=== PATIENT | female | born 1975 | race Caucasian/White ===

== ENCOUNTER 2016-09-05 13:24 | Inpatient (IN) | payer OTHER ==
[~2016-09-05] VITALS: Ht 165.1 cm; Wt 106.2 kg
[~2016-09-05 13:24] MED LIST: GABA300C16 PO; HYD25 PO; METO-429 PO; OMEP20CA16 PO; ZOF8 PO
[2016-09-05] MEDS ORDERED: SODIUM CHLORIDE 0.9% 1L BAG IV* STA (13:48)
[2016-09-05] MEDS ORDERED: ACETAMINOPHEN 325 MG TAB PO STA (13:48)
[2016-09-05] MEDS ORDERED: CEFEPIME 2GM/50 ML (PMX) 50 ML IVPB STA (13:48)
[2016-09-05] MEDS ORDERED: LEVE-5 PO (13:52)
[2016-09-05] MEDS ORDERED: VANCOMYCIN 1 GM (PMX) 250 ML IVPB ONE (14:00)
[2016-09-05 14:27] LABS: ADD SCAN DIFF NO
[2016-09-05 14:31] LABS: ABNORMAL IP MESSAGE 1; HEMATOCRIT 31.4 % (37.0-47.0); HEMOGLOBIN 10.7 g/dl (12.0-16.0); MEAN CORPUSCULAR HEMOGLOBIN 33.2 pg (29.0-33.0); MEAN CORPUSCULAR HGB CONC 34.1 g/dl (32.0-37.0); MEAN CORPUSCULAR VOLUME 97.5 fl (82.0-101.0); MEAN PLATELET VOLUME 11.5 fl (7.4-10.4); PLATELET COUNT 81 10^3/UL (140-415); RED BLOOD COUNT 3.22 10^6/ul (4.20-5.40); RED CELL DISTRIBUTION WIDTH 16.7 % (11.5-14.5); WHITE BLOOD COUNT 6.4 10^3/ul (4.8-10.8)
[2016-09-05 14:44] LABS: INR 1.16; PROTIME 14.9 Sec (12.2-14.2); PT RATIO 1.2
--- NOTE | 2016-09-05 14:44 | RADRPT ---
PROCEDURE: Chest x-ray CLINICAL INDICATION: Pain. TECHNIQUE: One-view frontal. COMPARISON: 07/11/2015 FINDINGS: The cardiac silhouette is normal. No infiltrates are noted. No hilar abnormalities are identified. No pneumothorax or pleural effusions are visualized. Port-A-Cath overlies the right chest. The catheter is in the lower superior vena cava. IMPRESSION: 1. No active cardiopulmonary changes. 2. No interval change. RPTAT: HGSG .Bud Rinaldi MD, Date Time Electronically viewed and signed by .Bud Rinaldi MD, on 09/05/2016 14:44 .G/
[2016-09-05 14:45] LABS: ALBUMIN 3.5 g/dl (3.3-4.9); CHLORIDE 88 mmol/L (97-110)
[2016-09-05 14:46] LABS: POTASSIUM 3.2 mmol/L (3.5-5.1); SODIUM 133 mmol/L (135-144)
[2016-09-05 14:48] LABS: ALBUMIN/GLOBULIN RATIO 0.85; ANION GAP 16 (8-16); ASPARTATE AMINO TRANSFERASE 52 IU/L (15-46); BILIRUBIN,INDIRECT 0.9 mg/dl (0-1.1); BILIRUBIN,TOTAL 0.9 mg/dl (0.2-1.3); CARBON DIOXIDE 32 mmol/L (21-31); CREATININE 0.84 mg/dl (0.44-1.00); TOTAL PROTEIN 7.6 g/dl (6.1-8.1)
[2016-09-05 14:49] LABS: ALANINE AMINOTRANSFERASE 75 IU/L (13-69); ALKALINE PHOSPHATASE 92 IU/L (42-121); BLOOD UREA NITROGEN 18 mg/dl (7-20); CALCIUM 8.6 mg/dl (8.4-10.2); GLUCOSE 141 mg/dl (70-220)
[2016-09-05 15:20] LABS: TROPONIN-I < 0.012 ng/ml (0.00-0.12)
[2016-09-05] MEDS ORDERED: IOHEXOL 100 ML ONE (15:23)
[2016-09-05] MEDS ORDERED: IOHEXOL 350MG/ML 50 ML BTL ONE (15:23)
[2016-09-05] MEDS ORDERED: SOD CHLORIDE 0.9% 100 ML ONE (15:23)
[2016-09-05 15:30] LABS: EOSINOPHILS # 0.1 10^3/ul (0.0-0.5); LYMPHOCYTES # 0.5 10^3/ul (0.8-2.9); MONOCYTE # 0.5 10^3/ul (0.3-0.9); NEUTROPHIL # 5.3 10^3/ul (1.6-7.5); PLATELET ESTIMATE PLT APPEAR DECREASED; POLYCHROMASIA 1+
[2016-09-05] MEDS ORDERED: ONDANSETRON 4 MG INJ IV PRN ×2 (15:30→19:30)
[2016-09-05] MEDS ORDERED: ACETAMINOPHEN 325 MG TAB PO PRN ×2 (15:30→19:30)
[2016-09-05] MEDS ORDERED: APIXABAN 5 MG TABLET PO ONE (16:30)
--- NOTE | 2016-09-05 16:43 | RADRPT ---
PROCEDURE: 1. CT chest, abdomen, and pelvis with contrast. 2. CT angiography of the chest was performed utilizing the pulmonary embolus protocol. CLINICAL INDICATION: Malaise and decreased appetite. Breast cancer and sepsis. TECHNIQUE: CT scan of the chest, abdomen, and pelvis was performed after the uneventful intravenous administrat ion of 120 cc of Omnipaque-350. CT angiography of the chest was performed utilizing the pulmonary em bolus protocol. Coronal and sagittal reformatted images were obtained from the axial source images. 3-D/multiplanar reformations were performed for the chest. Images were reviewed on a [employer] PACS workstation. The total exam CTDI equals 28.17, 20.11, 16.96 mGy and the total exam DLP equals 19.13.13 mGy-cm. One or more of the following dose reduction techniques were used: - Automated exposure control. - Adjustment of the mA and/or kV according to patient size. - Use of iterative reconstruction technique. COMPARISON: None available. FINDINGS: Pulmonary angiography, lungs, pleura, airways, and thoracic inlet: There are pulmonary emboli within the segmental and subsegmental branches of the right lower lobe an d within the subsegmental branches of the left lower lobe. The main pulmonary artery is normal in c aliber and there is no evidence of right heart strain. There are nodules scattered throughout both l ungs, the largest of which is in the right middle lobe and measures 12 mm. There is patchy peribronc hovascular ground-glass opacity within the upper lobes. There is no effusion or pneumothorax. Cardiovascular system the mediastinum: The heart is normal in size without pericardial thickening or effusion. The aorta is nonaneurysmal. There is postoperative change within the right breast. There is a left-sided Port-A-Cath in place with its tip at the superior cavoatrial junction. There is paratracheal bilateral hilar, and subcar inal adenopathy with a dominant subcarinal lymph node measuring 2.1 cm in short axis. Hepatobiliary system and spleen: There is diffuse fatty infiltration of the liver, which is enlarged measuring 20.3 cm in length. No focal hepatic lesion is identified. There is no intra or extrahepatic biliary ductal dilatation. Th e gallbladder is unremarkable. There are sub-centimeter cyst at the anterior superior margin of the spleen. The spleen is otherwise unremarkable. The pancreas is unremarkable. Genitourinary system and adrenal glands: There are no renal masses or hydronephrosis. The urinary bladder is unremarkable. The uterus and ad nexa are unremarkable. The adrenal glands are unremarkable. Gastrointestinal system: The stomach is partially decompressed, but otherwise unremarkable. The duodenum and small bowel are unremarkable. There is no bowel wall thickening or evidence of obstruction. The appendix is in the right lower quadrant and is unremarkable. Peritoneum and lymphatics: There is no free intraperitoneal air or free fluid. There is no mesenteric or retroperitoneal adenop athy. Musculoskeletal system: There are no concerning osseous lesions. IMPRESSION: 1. Positive for PE with emboli in the segmental and subsegmental branches of the right lower lobe a nd subsegmental branches of the left lower lobe. No evidence of right heart strain. 2. Bilateral pulmonary nodules, the largest of which is in the right middle lobe and measures 12 mm , highly concerning for metastatic disease. 3. Mediastinal and hilar adenopathy, also concerning for metastatic disease. 4. Hepatomegaly and hepatic steatosis. 5. No evidence of metastatic disease within the abdomen or pelvis. CRITICAL RESULTS: These findings discussed with Dr. Khoury in the ED at 1609 hours on 09/05/2016. RPTAT: AA .Deniz Palma MD, Date Time Electronically viewed and signed by .Deniz Palma MD, MD on 09/05/2016 16:43 .P/
--- NOTE | 2016-09-05 17:12 | ERA ---
ER Documentation Chief Complaint Date/Time DATE: 09/05/16 TIME: 17:10 Chief Complaint malaise/decrease appetite/week x1week, last chemo 08/26/16 HPI Patient is a 41-year-old female with breast cancer, asthma, and hypertension who presents with fever. The patient was sent by Dr. Vu for admission and workup. The patient has body aches and decreased appetite. The patient has a cough as well. Dr. Fletcher feels the patient likely has pneumonia. The patient received chemo last Friday. She was seen at the [place] emergency department 2 days ago but was discharged at that time. Upon review of old medical records this is the patient's third visit to the ER at [facility]. ROS All systems reviewed and are negative except as per history of present illness. Medications Home Meds Reported Medications Levetiracetam* (Keppra*) 500 Mg Tablet, 500 MG PO BID, TAB 09/05/16 Omeprazole* (Omeprazole*) 20 Mg Capsule.dr, 20 MG PO DAILY, #30 CAP 07/11/15 Hydrochlorothiazide* (Hydrochlorothiazide*) 25 Mg Tab, 25 MG PO DAILY, #30 TAB 07/11/15 Metoprolol Tartrate* (Lopressor*) 50 Mg Tab, 50 MG PO BID, TAB 09/01/14 Discontinued Reported Medications Gabapentin* (Gabapentin*) 300 Mg Capsule, 300 MG PO QHS, #60 CAP 07/11/15 Discontinued Scripts Ondansetron Hcl* (Zofran* ODT) 8 mg -ODT Tab.disper, 8 MG PO Q6 Y for NAUSEA AND /OR VOMITING, #10 TAB Prov:SARIAH HARMON MD 07/11/15 Allergies Allergies: Coded Allergies: No Known Allergy (Unverified , 09/05/16) PMhx/Soc History of Surgery: Yes (tubal ligation, LUMPECTOMY; right breast; brain tumor) Anesthesia Reaction: No Hx Neurological Disorder: No Hx Respiratory Disorders: Yes (asthma) Hx Cardiac Disorders: Yes (htn) Hx Psychiatric Problems: No Hx Miscellaneous Medical Probl: Yes (BREAST CANCER) Hx Alcohol Use: No Hx Substance Use: No Hx Tobacco Use: No Smoking Status: Never smoker FmHx Family History: diabetes Physical Exam Vitals Vital Signs Date Time Temp Pulse Resp B/P Pulse Ox O2 Delivery O2 Flow Rate FiO2 09/05/16 16:53 Nasal Cannula 4 09/05/16 16:43 99.6 104 20 87/45 99 Nasal Cannula 4.0 09/05/16 13:28 103.1 114 20 104/70 94 Physical Exam Const: Moderate distress Head: Atraumatic Eyes: Normal Conjunctiva ENT: Normal External Ears, Nose and Mouth. Neck: Full range of motion..~ No meningismus. Resp: Decreased breath sounds bilateral Cardio: Tachycardic rate without murmur Abd: Soft, non tender, non distended. Normal bowel sounds Skin: Pale skin Back: No midline or flank tenderness Ext: No cyanosis, or edema Neur: Awake and alert Psych: Normal Mood and Affect Result Diagram: 09/05/16 1400 09/05/16 1400 Results 24 hrs Laboratory Tests Test 09/05/16 14:00 White Blood Count 6.410^3/ul Red Blood Count 3.2210^6/ul Hemoglobin 10.7g/dl Hematocrit 31.4% Mean Corpuscular Volume 97.5fl Mean Corpuscular Hemoglobin 33.2pg Mean Corpuscular Hemoglobin Concent 34.1g/dl Red Cell Distribution Width 16.7% Platelet Count 8110^3/UL Mean Platelet Volume 11.5fl Neutrophils % 83.0% Lymphocytes % 8.0% Monocytes % 8.0% Eosinophils % 1.0% Neutrophils # 5.310^3/ul Lymphocytes # 0.510^3/ul Monocytes # 0.510^3/ul Eosinophils # 0.110^3/ul Platelet Estimate PLT APPEAR DECREASED Polychromasia 1+ Prothrombin Time 14.9Sec Prothrombin Time Ratio 1.2 INR International Normalized Ratio 1.16 Activated Partial Thromboplast Time 27.0Sec Sodium Level 133mmol/L Potassium Level 3.2mmol/L Chloride Level 88mmol/L Carbon Dioxide Level 32mmol/L Anion Gap 16 Blood Urea Nitrogen 18mg/dl Creatinine 0.84mg/dl Glucose Level 141mg/dl Lactic Acid Level 2.2mmol/L Calcium Level 8.6mg/dl Total Bilirubin 0.9mg/dl Direct Bilirubin 0.00mg/dl Indirect Bilirubin 0.9mg/dl Aspartate Amino Transf (AST/SGOT) 52IU/L Alanine Aminotransferase (ALT/SGPT) 75IU/L Alkaline Phosphatase 92IU/L Troponin I < 0.012ng/ml Total Protein 7.6g/dl Albumin 3.5g/dl Globulin 4.10g/dl Albumin/Globulin Ratio 0.85 Current Medications Medications (Trade) Dose Ordered Sig/Carmela Route PRN Reason Start Time Stop Time Status Last Admin Dose Admin Sodium Chloride (NS) 3,290 ml BOLUS OVER 2 HOURS STAT IV* 09/05/16 13:48 09/05/16 13:49 DC 09/05/16 14:15 Acetaminophen 650 mg 650 mg ONCE STAT PO 09/05/16 13:48 09/05/16 13:49 DC 09/05/16 14:13 Cefepime HCl 50 ml @ 100 mls/hr ONCE STAT IVPB 09/05/16 13:48 09/05/16 14:17 DC 09/05/16 14:13 Vancomycin HCl (Vancocin) 250 ml @ 125 mls/hr ONCE ONCE IVPB 09/05/16 14:00 09/05/16 15:59 DC 09/05/16 14:43 IV Flush 10 ml 10 ml STK-MED ONCE .ROUTE 09/05/16 15:23 09/05/16 15:24 DC 09/05/16 15:51 Sodium Chloride 100 ml @ ud STK-MED ONCE .ROUTE 09/05/16 15:23 09/05/16 15:24 DC 09/05/16 15:52 Iohexol (Omnipaque) 100 ml @ ud STK-MED ONCE .ROUTE 09/05/16 15:23 09/05/16 15:24 DC 09/05/16 15:52 Iohexol (Omnipaque 350mg/ ml) 50 ml STK-MED ONCE .ROUTE 09/05/16 15:23 09/05/16 15:24 DC 09/05/16 15:53 Ondansetron HCl (Zofran Inj) 4 mg BRIDGE ORDER PRN IV NAUSEA AND/OR VOMITING 09/05/16 15:30 09/06/16 15:29 Acetaminophen (Tylenol Tab) 650 mg ER BRIDGE PRN PO MILD PAIN/FEVER 09/05/16 15:30 09/06/16 15:29 Apixaban (Eliquis) 10 mg ONCE ONCE PO 09/05/16 16:30 09/05/16 16:32 DC Procedures/MDM EKG read by me: Rate/Rhythm: Sinus tachycardia Intervals: Normal Impression: Sinus tachycardia without ischemia CT of the chest shows pulmonary embolism per radiology. Chest x-ray shows no obvious pneumonia or pneumothorax per radiology. Admit MDM: Patient's infectious symptoms have not stabilized and the patient is at risk of rapid decompensation. The patient will be admitted for careful hydration, antibiotic therapy, and infectious source control. Severe Sepsis criteria: Infectious source: Pneumonia End organ damage indicated by: Lactate greater than 2 Sepsis Management: Time of recognition of sepsis: Upon arrival Within 3 hours of recognition: Blood cultures x 2 before broad-spectrum antibiotics: Yes 30 ml/kg NS bolus Completed Initial lactate 2.2 Repeat lactate pending Time of recognition of septic shock: No septic shock Septic Shock Assessment: Any lactic acid > 4.0 No Persistent hypotension (SBP < 90 or 40 mmHg drop, MAP < 65) despite 30 mL/kg IV fluid bolus No Volume Re-assessment for Septic Shock (post 30 ml/kg bolus): No septic shock at this time Persistent Hypotension Treatment: Comfort care No Central line Not Required Vasopressor started Not required I considered further perfusion assessment with CVP measurement, SCVO2, bedside ultrasound volume assessment, passive leg raise, trial of further fluid bolus. And proceeded with 30 ml/kg fluid bolus of NSS, broad spectrum antibiotics, and admission. The patient also has pulmonary embolism likely from her hypercoagulable state with breast cancer and was given Eliquis by mouth. She will need admission to a telemetry bed. Accepting Care Team Current data and ongoing care discussed. Admitting Physician: Dr. Matthews Car Lot Attendant(s): Dr. Vu Outstanding Data: Culture results and repeat lactic acid Critical Care: Critical care time 35 minutes excluding all billable procedures Emergent fluid management while maintaining close respiratory support. Provision of immediate and broad-spectrum antibiotic therapy. Simultaneous assessment for possible sources in order to direct targeted therapy. Consideration for invasive and chemical support to prevent cardiopulmonary collapse. Departure Diagnosis: Primary Impression: Pulmonary embolism Qualified Code: I26.90 - Acute septic pulmonary embolism without acute cor pulmonale Additional Impressions: Severe sepsis Pneumonia Qualified Code: J18.9 - Pneumonia due to infectious organism, unspecified laterality, unspecified part of lung Condition: Serious ROD CASTILLO MD September 05, 2016 17:12
[2016-09-05 17:31] VITALS: TEMP 100
[2016-09-05 17:31] LABS: ADD UMIC NO; URINE BILIRUBIN (Dip) NEGATIVE (NEGATIVE); URINE BLOOD (Dip) NEGATIVE (NEGATIVE); URINE COLOR LT. YELLOW (YELLOW); URINE GLUCOSE (Dip) NEGATIVE (NEGATIVE); URINE KETONES (Dip) NEGATIVE (NEGATIVE); URINE LEUKOCYTE ESTERASE (Dip) NEGATIVE (NEGATIVE); URINE NITRITE (Dip) NEGATIVE (NEGATIVE); URINE TOTAL PROTEIN (Dip) NEGATIVE (NEGATIVE); URINE UROBILINOGEN (Dip) 0.2 E.U./dL (0.1-1.0)
[2016-09-05 18:35] VITALS: BP 125/73; PULSE 107; RESP 18
[2016-09-05 18:38] VITALS: PULSE 107
[2016-09-05 18:42] VITALS: Ht 165.1 cm; Wt 106.2 kg
[2016-09-05] MEDS ORDERED: POTASSIUM CHLORIDE (SR) 20 MEQ TAB PO STA (19:06)
[2016-09-05] MEDS ORDERED: ZOLPIDEM 5 MG TAB PO PRN (19:30)
[2016-09-05] MEDS ORDERED: morphine 2 MG INJ IV PRN (19:30)
[2016-09-05] MEDS ORDERED: NACL 0.9% 3 ML SYG IV SCH (19:30)
[2016-09-05] MEDS ORDERED: DOCUSATE SODIUM 100 MG CAP PO PRN (19:30)
[2016-09-05] MEDS ORDERED: HYDROCODONE/APAP (5/325) TAB PO PRN (19:30)
[2016-09-05 20:09] VITALS: BP 117/70; RESP 20
[2016-09-05] MEDS: LEVETIRACETAM 500 MG TAB PO SCH (20:27)
[2016-09-05] MEDS: METOPROLOL 50 MG TAB PO SCH (20:28)
[2016-09-05 20:32] VITALS: PULSE 110
--- NOTE | 2016-09-05 20:39 | HP ---
DATE OF ADMISSION: 09/05/2016 CHIEF COMPLAINT: Weakness, shortness breath. HISTORY OF PRESENT ILLNESS: The patient is a 41-year-old female with history of metastatic breast c ancer with mets to the brain, status post recent brain met resection. The patient has been on chemo and radiation in the past. She has had a lumpectomy in the past and follows up with Dr. Vu for her chemotherapy. The patient has begun chemotherapy once again after having been off it for some t emeka. She comes in saying that she has decreased appetite, weakness, shortness of breath. She canno t hold down any food. In the ED, the patient had a CT of the abdomen and chest that showed PE as we ll as nodules in the lungs concerning for metastatic disease. Patient was started on Eliquis in the ED. She does state that she was able to tolerate some food, but in general has not been able to ea t a significant amount. She denies any significant nausea or vomiting. She has no other complaints . PAST MEDICAL HISTORY: As per HPI. HOME MEDICATIONS: 1. Hydrochlorothiazide. 2. Keppra. 3. Metoprolol. 4. Omeprazole. ALLERGIES: NO KNOWN DRUG ALLERGIES. FAMILY HISTORY: Denies. SOCIAL HISTORY: Denies any alcohol, tobacco or drugs. REVIEW OF SYSTEMS: A 12-point review of systems negative except for that as noted in the HPI. PHYSICAL EXAMINATION: VITAL SIGNS: T-max is 103.1, T-current is 99.3, pulse is 107, respiratory rate is 18, BP is 125/73, saturation 95% on 2 liters. GENERAL: Mild distress, alert and oriented. HEENT: Normocephalic, atraumatic. CHEST: Clear to auscultation. CARDIOVASCULAR: Regular rate and rhythm. ABDOMEN: Nondistended, nontender, soft. EXTREMITIES: No clubbing, cyanosis, or edema. LABORATORY DATA: White count 6.4, hemoglobin is 10.7, platelets are 81. Chemistry: Sodium is 133, K is 3.2, BUN is 18, creatinine is 0.84. AST ____, ALT is 75. INR is 1.16. UA is normal. DIAGNOSTICS: Chest CTA and CT abdomen show PE, bilateral pulmonary nodules concerning for metastati c disease, mediastinal and hilar adenopathy, hepatomegaly and hepatic steatosis, no evidence of meta static disease within the abdomen or pelvis. Chest x-ray shows no active changes, no interval han e. ASSESSMENT AND PLAN: 1. Generalized weakness with decreased appetite, likely secondary to recent initiation of chemother apy mixed possibly with a new pulmonary embolus. Will start the patient on clear liquid diet. Will give Zofran as needed. Will start the patient on Eliquis. Will get a consult with her oncologist, Dr. Vu. 2. Newly diagnosed pulmonary embolism. Start the patient on Eliquis. The patient will need at [facility] 3 months of Eliquis. Will consult her oncologist, Dr. Vu. 3. History of metastatic breast cancer with metastases to the brain, status post recent resection a s well as a history of lumpectomy and chemoradiation. Oncology consultation. 4. Hypokalemia. Replete. 5. Prophylaxis. Eliquis. Dictated By: HI COLBERT MD BS/NTS Conf#: [id number] DID#: [id number]
[2016-09-06] VITALS (10 sets, daily range): BP systolic 112–126; BP diastolic 67–76; PULSE 86–102; RESP 18–20
[2016-09-06] MEDS ORDERED: IBUPROFEN 600 MG TAB PO ONE (01:00)
[2016-09-06] MEDS ORDERED: PANTOPRAZOLE (EC) 40 MG TAB PO SCH (06:00)
[2016-09-06 07:51] LABS: ADD SCAN DIFF NO
[2016-09-06 07:59] LABS: ABNORMAL IP MESSAGE 1; BASOPHILS % 0.2 % (0.0-2.0); EOSINOPHILS % 0.2 % (0.0-7.0); HEMATOCRIT 26.1 % (37.0-47.0); HEMOGLOBIN 9.3 g/dl (12.0-16.0); LYMPHOCYTES # 0.6 10^3/ul (0.8-2.9); LYMPHOCYTES % 14.2 % (15.0-51.0); MEAN CORPUSCULAR HEMOGLOBIN 34.4 pg (29.0-33.0); MEAN CORPUSCULAR HGB CONC 35.6 g/dl (32.0-37.0); MEAN CORPUSCULAR VOLUME 96.7 fl (82.0-101.0); MONOCYTE # 0.6 10^3/ul (0.3-0.9); MONOCYTES % 13.5 % (0.0-11.0); PLATELET COUNT 77 10^3/UL (140-415); RED CELL DISTRIBUTION WIDTH 16.9 % (11.5-14.5); WHITE BLOOD COUNT 4.2 10^3/ul (4.8-10.8)
[2016-09-06 08:09] LABS: POTASSIUM 3.2 mmol/L (3.5-5.1)
[2016-09-06 08:12] LABS: CREATININE 0.59 mg/dl (0.44-1.00); PHOSPHORUS 3.5 mg/dl (2.5-4.9)
[2016-09-06 08:13] LABS: CALCIUM 8.1 mg/dl (8.4-10.2); MAGNESIUM 1.8 mg/dl (1.7-2.5)
[2016-09-06] MEDS: METOPROLOL 50 MG TAB PO SCH (08:37)
[2016-09-06] MEDS: LEVETIRACETAM 500 MG TAB PO SCH (08:37)
[2016-09-06] MEDS ORDERED: HYDROCHLOROTHIAZIDE 25 MG TAB PO SCH (09:00)
[2016-09-06] MEDS ORDERED: APIXABAN 5 MG TABLET PO SCH (09:00)
--- NOTE | 2016-09-06 14:27 | CONS ---
Date/Time of Note Date/Time of Note DATE: 09/06/16 TIME: 14:06 Assessment/Plan Assessment/Plan Chief Complaint/Hosp Course 40 yo female with metastatic triple negative breast cancer involving her bilateral lungs and mediastinal Lymph nodes who now presents with bilateral pulmonary emboli # Bilateral Pulmonary Emboli -continue Eliquis 10mg BID x 7 days then decrease to 5mg q BID -pt will need anticoagulation life long given her underlying metastatic cancer #Triple Negative Breast cancer -will consider continuing with Gemzar given that her progression was likely when she was off therapy -will check a CA 15-3 at this time. Her last CA 15-3 was 36 on 07/08 which was during the time she was off chemotherapy # Anemia -secondary to her underlying malignancy -cont po iron for now if patient can tolerate # Thrombocytopenia -secondary to Gemzar -no transfusion needed at this time. will continue to follow. -ok to continue anticoagulation as long as platelets are > 50K Approximately 40 min were spent at patient's bedside and in coordination of her care Problems: (1) Metastatic breast cancer Status: Chronic (2) Pulmonary embolism Status: Acute Qualifiers: Qualified Code: I26.90 - Acute septic pulmonary embolism without acute cor pulmonale Consultation Date/Type/Reason Admit Date/Time September 05, 2016 at 15:29 Date of Consultation: September 06, 2016 Type of Consultation: oncology Reason for Consultation metastatic breast cancer Referring Provider: HI COLBERT Hx of Present Illness Ms Horta is a 41-year-old female who I have been treating for triple negative metastatic breast cancer. Her initial diagnosis was in 2013 where she underwent neoadjuvant chemotherapy, followed by surgical resection and radiation. Her initial PET-CT did show evidence of hypermetabolic and large right paratracheal and left hilar node, as well as FDG uptake in the liver without a CT lesion. Therefore the patient underwent radiation to these other lymph nodes. The patient unfortunately recurred in June of 2015 and most recently has been receiving Gemzar chemotherapy, to which she was responding well systemically. Unfortunately, in June of 2016, she presented to [facility] for complaint of frontal headache with nausea and vomiting. She was subsequently diagnosed with brain mets. The patient underwent a craniotomy on 06/20/2016 with excision of the occipital tumor and pathology revealed a high -grade poorly differentiated metastatic carcinoma with clear cell features of the left occipital lesion, most consistent of breast origin. The patient then was seen by Dr. Toth postoperatively and she has since had stereotactic radiation to the tumor bed as well as the satellite lesions. The patient completed treatment on 08/07/2016. The patient completed her decadron taper. She restarted Gemcitabine on 08/26 but over the last week has become increasingly fatigued with shortness of breath. She was seen in our office yesterday and sent to the ER. A CT C/A/P was done which demonstrated bilateral pulmonary emboli in the segmental and subsegmental branches of the right lower lobe and subsegmental branches of the left lower lobe. Also seen are are bilateral pulmonary nodules, the largest of which is in the right middle lobe and measures 12 mm, highly concerning for metastatic disease. These pulmonary nodules were noted on PET CT from Apr 2016 but they measured 9mm in greatest dimension at that time. Of note pt was off chemotherapy from 06/13/16 to 08/26/16 while she was undergoing treatment to her brain mets. Pt has since been started on Eliquis 10mg po BID. August 21, 2016 Valeri Horta Page 2 of 2 The patient was seen by Dr. Spike Hendricks for possible enrollment in a clinical trial. Unfortunately, due to insurance reasons and the fact that her brain is not showing stability of the lesion, Dr. Hendricks cannot enroll her in the trial at this time. Therefore, we will be restarting Gemzar therapy at this time. The patient has an extremely good response systemically to Gemzar. We will have to watch her brain mets very closely in the interim. We will need to repeat her brain MRI likely in a months time. For now, we should continue Decadron taper and continue the Keppra Constitutional: poor po Eyes: no complaints ENT: no complaints Respiratory: cough, pleuritic pain, shortness of breath Cardiovascular: no complaints Gastrointestinal: no complaints Genitourinary: no complaints Musculoskeletal: back pain, bone/joint pain Skin: no complaints Endocrine: no complaints Past Medical History asthma migrans hypertension Family History Significant Family History: no pertinent family hx Social History Alcohol Use: none Smoking Status: Never smoker Drug Use: none Exam/Review of Systems Vital Signs Vitals Vital Signs Date Time Temp Pulse Resp B/P Pulse Ox O2 Delivery O2 Flow Rate FiO2 09/06/16 12:16 86 09/06/16 11:50 99.6 18 113/67 91 09/06/16 07:21 Nasal Cannula 2.0 Intake and Output 09/05/16 09/05/16 09/06/16 15:00 23:00 07:00 Intake Total 50 ml 500 ml Balance 50 ml 500 ml Exam Constitutional: alert, frail, oriented, other (fatigue) Psych: depression Head: normocephalic Eyes: nl conjunctiva ENMT: nl external ears & nose Neck: non-tender, supple Respiratory: congested cough, crackles/rales, diminished breath sounds Cardiovascular: regular rate and rhythm Gastrointestinal: soft Musculoskeletal: nl extremities to inspection, nl gait and stance Extremities: normal pulses Results Result Diagram: 09/06/1672409/06/16 07 Results 24 hrs Laboratory Tests Test 09/05/16 16:45 09/05/16 18:46 09/05/16 20:25 09/06/16 07:25 Urine Color LT. YELLOW Urine Clarity CLEAR Urine pH 7.0 Urine Specific [place] <=1.005 L Urine Ketones NEGATIVE Urine Nitrite NEGATIVE Urine Bilirubin NEGATIVE Urine Urobilinogen 0.2 E.U./dL Urine Leukocyte Esterase NEGATIVE Urine Hemoglobin NEGATIVE Urine Glucose NEGATIVE Urine Total Protein NEGATIVE Lactic Acid Level 2.1 1.7 White Blood Count 4.2 #L Red Blood Count 2.70 L Hemoglobin 9.3 L Hematocrit 26.1 L Mean Corpuscular Volume 96.7 Mean Corpuscular Hemoglobin 34.4 H Mean Corpuscular Hemoglobin Concent 35.6 Red Cell Distribution Width 16.9 H Platelet Count 77 L Mean Platelet Volume 11.0 H Neutrophils % 71.0 Lymphocytes % 14.2 L Monocytes % 13.5 H Eosinophils % 0.2 Basophils % 0.2 Nucleated Red Blood Cells % 0.0 Neutrophils # 3.0 Lymphocytes # 0.6 L Monocytes # 0.6 Eosinophils # 0.0 Basophils # 0.0 Nucleated Red Blood Cells # 0.0 Sodium Level 134 L Potassium Level 3.2 L Chloride Level 93 L Carbon Dioxide Level 31 Anion Gap 13 Blood Urea Nitrogen 15 Creatinine 0.59 Glucose Level 105 Hemoglobin A1c 5.9 Calcium Level 8.1 L Phosphorus Level 3.5 Magnesium Level 1.8 Medications Medications Current Medications Ondansetron HCl (Zofran Inj) 4 mg Q6H PRN IV NAUSEA AND/OR VOMITING; Start at 19:30 Acetaminophen (Tylenol Tab) 650 mg Q6H PRN PO PAIN LEVEL 1-3 OR FEVER Last administered on 09/06/16 05:53; Admin Dose 650 MG; Start 09/05/16 at 19:30 Acetaminophen/ Hydrocodone Bitart ([place] (5/325)) 1 tab Q6H PRN PO MODERATE PAIN LEVEL 4-6; Start 09/05/16 at 19:30 Morphine Sulfate (morphine) 2 mg Q4H PRN IV SEVERE PAIN LEVEL 7-10; Start 09/05 at 19:30 Docusate Sodium (Colace) 100 mg Q12H PRN PO CONSTIPATION; Start 09/05/16 at 19: 30 Zolpidem Tartrate (Ambien) 5 mg QHS PRN PO SLEEP; Start 09/05/16 at 19:30 Apixaban (Eliquis) 10 mg BID PO Last administered on 09/06/16 08:38; Admin Dose 10 MG; Start 09/06/16 at 09:00 Hydrochlorothiazide (Hydrochlorothiazide) 25 mg DAILY PO Last administered on 08:38; Admin Dose 25 MG; Start 09/06/16 at 09:00 Levetiracetam (Keppra) 500 mg BID PO Last administered on 09/06/16 08:37; Admin Dose 500 MG; Start 09/05/16 at 21:00 Metoprolol Tartrate (Lopressor) 50 mg BID PO Last administered on 09/06/16 08: 37; Admin Dose 50 MG; Start 09/05/16 at 21:00 Pantoprazole (Protonix Tab) 40 mg DAILY@06 PO Last administered on 09/06/16 05 :53; Admin Dose 40 MG; Start 09/06/16 at 06:00 JOVITA DONOHUE M.D. September 06, 2016 14:18
[2016-09-06] MEDS ORDERED: POTASSIUM CHLORIDE (SR) 20 MEQ TAB PO STA (14:58)
[2016-09-06] MEDS ORDERED: APIX5TAB PO (15:08)
--- NOTE | 2016-09-06 15:08 | PDOCDIS ---
Discharge Instructions CONDITION Patient Condition: Good HOME CARE INSTRUCTIONS: Diet Instructions: Regular ACTIVITY: Activity Restrictions: No Restrictions FOLLOW UP/APPOINTMENTS Appointments F/U WITH YOUR PCP IN 1-2 WEEKS, F/U WITH DR GLOVER SCHEDULED HI COLBERT September 06, 2016 15:08
--- NOTE | 2016-09-06 17:27 | DS ---
DATE OF ADMISSION: 09/05/2016 DATE OF DISCHARGE: 09/06/2016 DISCHARGE DIAGNOSES: 1. Generalized weakness and decreased appetite secondary to recent reinitiation of chemotherapy as well as pulmonary embolism. Condition improved. Discharge with Eliquis. 2. History of metastatic breast cancer with history mets to the brain, status post recent brain res ection. The patient to continue to follow up with her oncologist, Dr. Vu. 3. Newly diagnosed pulmonary embolism. The patient will be started on Eliquis and will likely requ myriam Eliquis indefinitely. 4. Hypokalemia, repleted. HOSPITAL COURSE: The patient is a 41-year-old unfortunate female with a history of metastatic breas t cancer with mets to the brain status post recent brain met resection. The patient has also been o n chemoradiation in the past. She was off it for some time, but she has been reinitiated it and now presents with weakness, shortness of breath, difficulty keeping down food. The patient was seen by her oncologist, Dr. Vu, in house. The patient was also diagnosed with pulmonary embolism. It w as felt that the patient will likely need to be on Eliquis lifelong given her underlying history of metastatic cancer. The patient was felt to be stable for discharge. She was able to tolerate a liq uid diet and felt that she wanted to go home and slowly advance her diet at home. On day of dischar ge, the patient's vitals, labs, and physical examination were stable. She had no acute complaints. Questions were answered. CONDITION ON DISCHARGE: Stable. DISPOSITION: To home. MEDICATIONS: The patient was given Eliquis 10 mg p.o. b.i.d. for 6 days and then 5 mg p.o. b.i.d. f or 9 days. The patient is to continue other home medications. FOLLOWUP: The patient is to follow up with her PCP in 1 to [address] Vu of oncology a s scheduled. Greater than 30 minutes was spent coordinating discharge of patient. Dictated By: HI COLBERT MD BS/NTS Conf#: [id number] DID#: [id number]
== END 2016-09-06 18:06 | disposition home or self-care (01) | DRG 176 ==
LOC: E/R 13:24 → MS4 15:29
PROVIDERS: ADMIT Internal Medicine; ATTEND Internal Medicine
DX: I26.99 Other pulmonary embolism without acute cor pulmonale (principal); C79.81 Secondary malignant neoplasm of breast; D69.6 Thrombocytopenia, unspecified; F50.9 Eating disorder, unspecified; E87.6 Hypokalemia; D64.9 Anemia, unspecified; Z85.841 Personal history of malignant neoplasm of brain; Z92.21 Personal history of antineoplastic chemotherapy; Z98.890 Other specified postprocedural states
CPT/HCPCS: 36415; 71010; 71275; 74177; 80048; 80053; 81003; 83036; 83605; 83735; 84100; 84484; 85025; 85610; 85730; 87040; 87086; 93005; 96365; 96375; J0692; J3370; J7030; Q9967